=== PATIENT | male | born 2000 | race African-American/Black ===

== ENCOUNTER 2023-05-02 00:08 | Emergency (ER) | payer MEDICAID ==
--- NOTE | 2023-05-02 01:13 | ED Physician Documentation ---
PD HPI SKIN - Stated complaint Stated Complaint: HEAD PX - Chief complaint Chief Complaint: Wound - History obtained from History obtained from: Patient, Family - Additional information Additional information: Patient complains of generalized scalp pain. He says he has had similar discomfort before associated with multiple scalp sebaceous cysts. He has seen a plastic surgeon for these lesions and has had them excised in the past, only to have them return. Denies fever. The lesions have become increasingly swollen and painful over past several days. Review of Systems Constitutional: denies: Fever Skin: reports: Lesions (multiple scalp lesions diagnosed as sebacious cysts in the past) PD PAST MEDICAL HISTORY - Past Medical History Past Medical History: Yes Cardiovascular: Valve disorder - Past Surgical History Past Surgical History: Yes Derm: Other - Present Medications Home Medications: Ambulatory Orders Medication Instructions Recorded Confirmed Doxycycline [Vibramycin] 100 mg PO BID #14 tablet 05/02/23 Mupirocin 2% Oint [Bactroban 2% 05/02/23 Oint] - Allergies Allergies/Adverse Reactions: Allergies Allergy/AdvReac Type Severity Reaction Status Date / Time No Known Drug Allergies Allergy Verified 05/02/23 00:17 - Social History Does the pt smoke?: No Smoking Status: Never smoker Does the pt drink ETOH?: Yes ETOH Use: Wine Does the pt have substance abuse?: No - Immunizations Immunizations are current?: Yes - POLST Patient has POLST: No PD ED PE NORMAL - Vitals Vital signs reviewed: Yes - General General: Alert and oriented X 3, No acute distress, Well developed/nourished - HEENT HEENT: PERRL, EOMI PD ED PE EXPANDED - HEENT HEENT: Other (multiple scalp lesions that are nontender, range in size from 1cm diameter to 3 cm diameter. the lesions are soft, flesh-colored (c/w sebacious/inclusion cysts). Largest cyst is midline of frontoparietal scalp with no hair growth on lesion (grossly visible well within thick hair line) ) HEENT Visual: 1 - abscess (approximately 2-3 cm diameter, raised, tender, fluctuant), swelling, tenderness Results - Vitals Vitals: Vital Signs - 24 hr 05/02/23 05/02/23 00:14 03:30 Temperature 36.7 C Heart Rate 77 68 Respiratory 16 16 Rate Blood Pressure 129/80 130/75 O2 Saturation 99 100 Oxygen O2 Source Room air Procedures - Abscess I&D (location) Scalp Preparation: Chlorhexadine, Lidocaine 1% Incision: Purulent drainage (moderate amount pus return), Other (small insicion made using bevelled edge of 18g needle (after infiltration of 1% lidocaine without epinephrine using #27g)) Other: Pt tolerated well, Antibiotic prescribed PD Medical Decision Making - ED course Complexity details: considered differential, d/w patient ED course: The largest lesion was incised and drained as per procedure note. Based on patient's description of previous episodes and recurrence, as well as minimal TTP and no obvious discoloration, I was expecting sebacious material only, but , as noted, return was mostly purulence with small amount of sebacious material mixed with the purulence. He is given doxycycline PO with rx for same e- prescribed to his pharmacy of choice. return precautions reviewed. Departure - Departure Disposition: 01 Home, Self Care Clinical Impression: Abscess Condition: Good Instructions: ED Abscess IandD Prescriptions: Doxycycline [Vibramycin] 100 mg PO BID #14 tablet Comments: I was able to drain a significant mount of pus from the lesion on your scalp. Pus indicates an infectious cause, and this is why you are given the first dose of an antibiotic (doxycycline) in the emergency department, and have electronically submitted a prescription for a 1 week course of this antibiotic to the [facility] pharmacy in [place]. Follow-up with your primary care provider within 3 to 5 days for reevaluation of the lesions. Discharge Date/Time: 05/02/23 03:32
--- NOTE | 2023-05-02 01:13 | ED Physician Documentation ---
PD HPI HEADACHE - Stated complaint Stated Complaint: HEAD PX - Chief complaint Chief Complaint: Wound PD PAST MEDICAL HISTORY - Past Medical History Past Medical History: Yes Cardiovascular: Valve disorder - Past Surgical History Past Surgical History: Yes Derm: Other - Present Medications Home Medications: Ambulatory Orders Medication Instructions Recorded Confirmed Mupirocin 2% Oint [Bactroban 2% 05/02/23 Oint] - Allergies Allergies/Adverse Reactions: Allergies Allergy/AdvReac Type Severity Reaction Status Date / Time No Known Drug Allergies Allergy Verified 05/02/23 00:17 - Social History Does the pt smoke?: No Smoking Status: Never smoker Does the pt drink ETOH?: Yes ETOH Use: Wine Does the pt have substance abuse?: No - Immunizations Immunizations are current?: Yes - POLST Patient has POLST: No Results - Vitals Vitals: Vital Signs - 24 hr 05/02/23 00:14 Temperature 36.7 C Heart Rate 77 Respiratory 16 Rate Blood Pressure 129/80 O2 Saturation 99 Oxygen O2 Source Room air
[2023-05-02] MEDS ORDERED: LIDOCAINE 1% 2 ML VIAL SUBQ STA (01:46)
[2023-05-02] MEDS ORDERED: DOXYCYCLINE 100 MG TABLET PO STA (03:05)
[2023-05-02] MEDS ORDERED: BACITRACIN ZINC OINT 1 PACKET TOP STA (03:05)
[2023-05-02 03:42] VITALS: BP 130/75
== END 2023-05-02 03:32 | disposition home or self-care (01) ==
LOC: ED 00:08
DX: L02.91 Cutaneous abscess, unspecified (principal)
CPT/HCPCS: 10060; 99282; A9270

== ENCOUNTER 2023-10-13 16:38 | Emergency (ER) | payer MEDICAID ==
[2023-10-13 16:50] VITALS: O2SAT 99
[2023-10-13 17:35] LABS: BASOPHILS % (AUTO) 0.2 %; EOSINOPHILS % (AUTO) 0.1 %; HCT - HEMATOCRIT 53.5 % (42.0-52.0); HGB - HEMOGLOBIN 17.7 g/dL (14.0-18.0); LYMPHOCYTES # (AUTO) 0.5 10^3/uL (1.5-3.5); LYMPHOCYTES % (AUTO) 5.6 %; MEAN CORPUSCULAR HEMOGLOBIN 28.1 pg (27.0-31.0); MEAN CORPUSCULAR HGB CONC 33.1 g/dL (32.0-36.0); MEAN CORPUSCULAR VOLUME 85.1 fL (80.0-94.0); MEAN PLATELET VOLUME 9.5 fL (7.4-11.4); MONOCYTES # (AUTO) 0.8 10^3/uL (0.0-1.0); MONOCYTES % (AUTO) 8.1 %; NEUTROPHILS # (AUTO) 7.9 10^3/uL (1.5-6.6); NEUTROPHILS % (AUTO) 85.8 %; PLT - PLATELET COUNT 225 10^3/uL (130-450); RED BLOOD COUNT 6.29 10^6/uL (4.70-6.10); RED CELL DISTRIBUTION WIDTH 13.2 % (12.0-15.0); WHITE BLOOD COUNT 9.3 x10^3/uL (4.8-10.8)
[2023-10-13] MEDS ORDERED: MORPHINE 2 MG/ML CARPUJECT IVP STA (17:37)
[2023-10-13] MEDS ORDERED: SODIUM CHLORIDE 0.9% 1,000 ML IV STA ×2 (17:37)
[2023-10-13] MEDS ORDERED: ONDANSETRON 4 MG/2 ML VIAL IVP STA (17:37)
[2023-10-13 17:48] LABS: ALBUMIN 4.5 g/dL (3.2-5.5); ALBUMIN/GLOBULIN RATIO 1.3 (1.0-2.2); ALKALINE PHOSPHATASE 65 IU/L (42-121); ALT ALANINE AMINOTRANSFERASE 15 IU/L (10-60); AST ASPARTATE AMINOTRANSFERASE 18 IU/L (10-42); BILIRUBIN,TOTAL 1.1 mg/dL (0.2-1.0); BUN - BLOOD UREA NITROGEN 12 mg/dL (6-20); CALCIUM 9.5 mg/dL (8.5-10.3); CARBON DIOXIDE - CO2 29 mmol/L (21-32); CHLORIDE 102 mmol/L (101-111); GFR - MDRD 115 (>89); GLUCOSE 93 mg/dL (74-104); SODIUM 138 mmol/L (135-145)
[2023-10-13 17:51] LABS: LIPASE < 10 U/L (11-82)
[2023-10-13] MEDS ORDERED: KETOROLAC 30 MG/ML VIAL IVP STA (18:12)
[2023-10-13] MEDS ORDERED: iohexoL-300 100 ML VIAL IVP ONE (18:14)
--- NOTE | 2023-10-13 18:16 | ED Physician Documentation ---
History of Present Illness - Stated complaint Stated Complaint: VOMITING,LOWER BACK PX - Chief complaint Chief Complaint: Abd Pain - History obtained from History obtained from: Patient - History of Present Illness Timing: Today Pain level max: 7 Pain level now: 7 - Additonal information Additional information: 22-year-old male presents to the emergency department with bilateral lower back and lower abdominal pain that started around 630 this morning. He also complains of nausea and vomiting. No diarrhea. No constipation. No fevers. No chills. Has not taken anything for pain. Nothing makes it better or worse. No urinary symptoms. Has never had similar symptoms previously. No rhinorrhea, cough, congestion. No hematuria, dysuria. No IV drug use. No trauma. No urinary incontinence. No fecal incontinence. Review of Systems Constitutional: denies: Fever, Chills Respiratory: denies: Dyspnea, Cough GI: reports: Nausea, Vomiting. denies: Hematemesis, Bloody / black stool : denies: Dysuria, Frequency, Hesitancy, Incontinent, Testicular pain, Testicular mass Skin: denies: Rash Musculoskeletal: denies: Neck pain Neurologic: denies: Headache PD PAST MEDICAL HISTORY - Past Medical History Past Medical History: Yes Cardiovascular: Valve disorder Respiratory: None Neuro: None Endocrine/Autoimmune: None GI: None : None HEENT: None Psych: None Musculoskeletal: None Derm: None - Past Surgical History Past Surgical History: Yes Derm: Other - Present Medications Home Medications: Ambulatory Orders Medication Instructions Recorded Confirmed Doxycycline [Vibramycin] 100 mg PO BID #14 tablet 05/02/23 Mupirocin 2% Oint [Bactroban 2% 05/02/23 Oint] HYDROcod/ACETAM 5/325 [[place] 5/325] 1 - 2 ea PO Q6H PRN #10 tablet 10/13/23 Ondansetron Odt [Zofran] 4 mg TL Q6H PRN #10 tablet 10/13/23 - Allergies Allergies/Adverse Reactions: Allergies Allergy/AdvReac Type Severity Reaction Status Date / Time No Known Drug Allergies Allergy Verified 10/13/23 16:47 - Social History Does the pt smoke?: No Smoking Status: Never smoker Does the pt drink ETOH?: Yes Does the pt have substance abuse?: No - Immunizations Immunizations are current?: Yes - POLST Patient has POLST: No PD ED PE NORMAL - Vitals Vital signs reviewed: Yes - General General: Alert and oriented X 3, No acute distress - HEENT HEENT: PERRL, Moist mucous membranes - Neck Neck: Supple, no meningeal sign - Cardiac Cardiac: RRR, Strong equal pulses - Respiratory Respiratory: No respiratory distress, Clear bilaterally - Abdomen Abdomen: Soft, Non tender, Non distended - Back Back: No CVA TTP, No spinal TTP - Derm Derm: Warm and dry - Extremities Extremities: No edema, Other (Normal bilateral lower extremity patellar and ankle jerk reflexes. Normal great toe extension bilaterally. no saddle anesthesia) - Neuro Neuro: Alert and oriented X 3, No motor deficit, No sensory deficit - Psych Psych: Normal mood, Normal affect Results - Vitals Vitals: Vital Signs - 24 hr 10/13/23 10/13/23 10/13/23 16:47 18:28 20:00 Temperature 37.5 C Heart Rate 100 103 H 68 Respiratory 20 20 15 Rate Blood Pressure 110/60 127/72 115/70 O2 Saturation 99 99 99 10/13/23 21:31 Temperature Heart Rate 85 Respiratory 18 Rate Blood Pressure 120/66 O2 Saturation 99 Oxygen O2 Source Room air - Labs Labs: Laboratory Tests 10/13/23 10/13/23 10/13/23 17:27 17:27 20:03 WBC 9.3 RBC 6.29 H Hgb 17.7 Hct 53.5 H MCV 85.1 MCH 28.1 MCHC 33.1 RDW 13.2 Plt Count 225 MPV 9.5 Neut # (Auto) 7.9 H Lymph # (Auto) 0.5 L [place] # (Auto) 0.8 Eos # (Auto) 0.0 Baso # (Auto) 0.0 Absolute Nucleated RBC 0.00 Nucleated RBC % 0.0 Sodium 138 Potassium 4.0 Chloride 102 Carbon Dioxide 29 Anion Gap 7.0 BUN 12 Creatinine 1.0 Estimated GFR (MDRD) 115 Glucose 93 Calcium 9.5 Total Bilirubin 1.1 H AST 18 ALT 15 Alkaline Phosphatase 65 Total Protein 8.0 Albumin 4.5 Globulin 3.5 Albumin/Globulin Ratio 1.3 Lipase < 10 L Urine Color YELLOW Urine Clarity CLEAR Urine pH 6.0 Ur Specific [place] <=1.005 Urine Protein NEGATIVE Urine Glucose (UA) NEGATIVE Urine Ketones 40 H Urine Occult Blood NEGATIVE Urine Nitrite NEGATIVE Urine Bilirubin NEGATIVE Urine Urobilinogen 1 (NORMAL) Ur Leukocyte Esterase NEGATIVE Ur Microscopic Review NOT INDICATED Urine Culture Comments NOT INDICATED - Rads (name of study) CT abd pelvis Relevant Findings:: Final report received, See rad report PD Medical Decision Making - ED course Complexity details: reviewed results, re-evaluated patient, considered differential, d/w patient ED course: 22-year-old male presents to the emergency department with lower abdominal pain going to the lower back. No testicular pain. No testicular mass. This was accompanied by nausea and vomiting. He was given morphine, Zofran, Toradol. Pain resolved. Nausea and vomiting resolved. He was also given IV fluids. No significant laboratory abnormalities. No UTI. No acute findings on CT scan. No appendicitis. No bowel obstruction. No ureteral stones. Possible viral illness? No focal neurological deficits. Ambulating with a normal gait. Will place him on pain medication and nausea medication for home. Abdomen is soft, nontender nondistended on serial exam. No CVA tenderness. Patient is ambulating with a normal gait. Patient counseled regarding signs and symptoms for which I believe and urgent re-evaluation would be necessary. Patient with good understanding of and agreement to plan and is comfortable going home at this time This document was made in part using voice recognition software. While efforts are made to proofread this document, sound alike and grammatical errors may occur. Departure - Departure Disposition: 01 Home, Self Care Clinical Impression: Viral gastroenteritis Abdominal pain Qualifiers: Abdominal location: lower abdomen, unspecified Qualified Code(s): R10.30 - Lower abdominal pain, unspecified Back pain Qualifiers: Back pain location: low back pain Chronicity: acute Back pain laterality: bilateral Sciatica presence: without sciatica Qualified Code(s): M54.50 - Low back pain, unspecified Condition: Good Instructions: ED Gastroenteritis Viral Follow-Up: your,doctor in 3-5 days if not better [Other] Prescriptions: HYDROcod/ACETAM 5/325 [[place] 5/325] 1 - 2 ea PO Q6H PRN #10 tablet PRN Reason: Pain Ondansetron Odt [Zofran] 4 mg TL Q6H PRN #10 tablet PRN Reason: Nausea / Vomiting Comments: Your prescriptions were sent to the [facility] pharmacy in [place]. This appears to be a viral gastroenteritis and should improve on its own over the next 24 hours. Your laboratory testing including CBC, electrolytes, liver test, urinalysis as well as your CT scan do not show any significant acute abnormalities. I am prescribing a short course of narcotic pain medication for you. These are potentially dangerous and addictive medications that should be used carefully. These medications may constipate you. Take an [id number] stool softener (docusate) twice daily with plenty of water while taking these medications. If you go 24 hours without a bowel movement, take [id number] miralax, per package instructions. Do not drink or drive while taking these medications. If you received narcotic or sedating medications while in the emergency department, do not drive for 24 hours. Store this medication in a safe, secure place and out of reach of children. It is a violation of federal law to give or sell this medication to another person or to use in a manner other than prescribed. The ED will not refill narcotic prescriptions, including prescriptions lost or stolen. To dispose of unwanted medications: 1. [facility] at [address] in [place] has a medication drop box. They accept prescription medications (in pill form) Tuesday through Tuesday 9:00 a.m. to 5:00 p.m. 2. [facility] accepts prescription medications (in pill form only) for disposal year round. Call for more information. 3. Contact the [facility] for the next [facility] sponsored prescription drug collection event. , [phone], or [phone]; Forms: PCP List Discharge Date/Time: 10/13/23 21:31
[2023-10-13] MEDS ORDERED: PROMETHAZINE INJ 25 MG in SODIUM CHLORIDE 0.9% 50 ML IV STA (18:33)
[2023-10-13] MEDS ORDERED: PROMETHAZINE 25 MG/1 ML VIAL ONE (18:41)
--- NOTE | 2023-10-13 19:53 | CT Report ---
PROCEDURE: ABDOMEN/PELVIS W INDICATIONS: RLQ pain, vomiting CONTRAST: 100mL Omni 300 TECHNIQUE: After the administration of intravenous contrast, 5 mm thick sections acquired from the diaphragms to the symphysis. 5 mm thick coronal and sagittal reformats were acquired. For radiation dose reducti on, the following was used: automated exposure control, adjustment of mA and/or kV according to ida ent size. COMPARISON: None available FINDINGS: Image quality: Diagnostic. Lung bases and heart: Unremarkable. Liver: No solid mass. Gallbladder and biliary tree: No radiopaque stones or wall thickening. No biliary dilation. Spleen: No splenomegaly. Pancreas: No pancreatic ductal dilation. Adrenals: No adrenal nodule. Kidneys and ureters: No hydronephrosis. No renal cystic lesion which requires follow up. No solid mas s. Bowel and peritoneum: No bowel distension. No pathologic free fluid. Appendix is not definitively vis ualized the right lower quadrant, however there are no secondary signs of inflammation. Lymph nodes: No central or retroperitoneal adenopathy. Vessels: No infrarenal aortic aneurysm. PELVIS Reproductive organs: Unremarkable. Bladder: No abnormal wall thickening, accounting for underdistension. Pelvic lymph nodes: No pelvic adenopathy by size criteria. Bones: No aggressive osseous abnormality. Other: No significant ventral or inguinal hernia. IMPRESSION: No acute findings in the abdomen or pelvis to explain patient's symptoms. Appendix is not definitivel y visualized, however there are no inflammatory changes visualized in the right lower quadrant. Reviewed by: Yanira Teran MD on 10/13/2023 7:51 PM PST Approved by: Yanira Terna MD on 10/13/2023 7:51 PM PST Station ID: [id number]
[2023-10-13 20:26] LABS: BILIRUBIN,URINE NEGATIVE (NEGATIVE); GLUCOSE, URINE (UA) NEGATIVE (NEGATIVE); KETONES,URINE (UA) 40 mg/dL (NEGATIVE); LEUKOCYTE ESTERASE, URINE NEGATIVE (NEGATIVE); NITRITE,URINE NEGATIVE (NEGATIVE); OCCULT BLOOD,URINE NEGATIVE (NEGATIVE); PROTEIN,URINE NEGATIVE (NEGATIVE); UROBILINOGEN,URINE 1 (NORMAL) E.U./dL (NORMAL)
[2023-10-13 20:31] LABS: CLARITY,URINE CLEAR (CLEAR)
[2023-10-13] MEDS ORDERED: HYDROcod/ACET 5/325 Prepack 4 PO STA (21:14)
[2023-10-13] MEDS ORDERED: ONDANSETRON ODT 4 MG Prepack 2 TL PRN (21:14)
[2023-10-13 21:32] VITALS: BP 120/66
== END 2023-10-13 21:31 | disposition home or self-care (01) ==
LOC: ED 16:38
DX: M54.30 Sciatica, unspecified side (principal); R10.30 Lower abdominal pain, unspecified
CPT/HCPCS: 36415; 74177; 80053; 81003; 83690; 85025; 96365; 96375; 99283; 99284; J7040; Q9967; 81001; 87086